=== PATIENT | male | born 1970 ===

== ENCOUNTER 2024-02-18 13:44 | Emergency (ER) | payer OTHER, SELFPAY ==
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
[2024-02-18 13:50] VITALS: BP 116/71; PULSE 70; RESP 18; TEMP 36.7; O2SAT 98; BMI 26.9
[2024-02-18] MEDS: Lidocaine 4 % Patch ADH..PATCH 1 PATCH TRANSDERMA (14:52)
[2024-02-18] MEDS: Acetaminophen 325 MG TABLET 975 MG PO (14:52)
--- NOTE | 2024-02-18 14:54 | PC.NURSE ---
pt medicated per order
[2024-02-18 15:26] VITALS: BP 118/73; PULSE 72; RESP 16; TEMP 36.7; O2SAT 98
== END 2024-02-18 15:28 | disposition home or self-care (01) ==
PROVIDERS: Emergency Provider Emergency Medicine
DX: M54.50 Low back pain, unspecified (principal)
CPT/HCPCS: 72100; 99283